=== PATIENT | male | born 1995 | race Hispanic/Latino ===

== ENCOUNTER 2020-04-26 13:20 | Emergency (ER) | payer SELFPAY ==
[2020-04-26] MEDS ORDERED: Acetaminophen 325 MG TAB ONE (14:23)
[2020-04-26] MEDS ORDERED: Ibuprofen 800 MG TAB ONE (14:23)
[2020-04-26] MEDS ORDERED: Dexamethasone 4 mg/ml Vial ONE (14:23)
--- NOTE | 2020-04-26 14:55 | RAD ---
EXAM: CHEST ONE VIEW PORTABLE: 04/26/20 HISTORY: History of being COVID positive, congestion. FINDINGS: The heart size is within normal limits. The bronchovascular markings are slightly prominent bilateral ly but no convincing evidence for acute pneumonia. Slight right costophrenic angle blunting. IMPRESSION: No convincing evidence for pneumonia. POS: RRE
== END 2020-04-26 16:22 | disposition home or self-care (01) ==
LOC: ERS 13:20
DX: U07.1 COVID-19 (principal)
CPT/HCPCS: 71045; J1100